=== PATIENT | female | born 1980 | race Hispanic/Latino ===

== ENCOUNTER 2020-12-17 19:14 | Emergency (ER) | payer SELFPAY ==
[2020-12-17] MEDS ORDERED: Acetaminophen 500 MG TAB ONE (19:43)
[2020-12-17] MEDS ORDERED: Dexamethasone 10 MG/ML VIAL ONE (19:43)
== END 2020-12-17 19:56 | disposition home or self-care (01) ==
LOC: CSHERS 19:14
DX: U07.1 COVID-19 (principal)
CPT/HCPCS: 93005; 99283; J1100